=== PATIENT | male | born 1950 | race Caucasian/White ===

== ENCOUNTER 2024-04-19 09:18 | Outpatient (AMB) | payer OTHER, SELFPAY ==
[2024-04-19 09:17] VITALS: BP 129/80; PULSE 70; RESP 18; TEMP 36.4; O2SAT 95; BMI 39.4
--- NOTE | 2024-04-19 09:17 | PD.ORTHCLVIS ---
Vital signs 04/19/24 09:17 Height 1.78 m Height Method Stated Weight 124.738 kg Weight Measurement Method Estimated by Patient BMI 39.4 BP 129/80 Blood Pressure Source Automatic Cuff Blood Pressure Location Right Upper Arm Position Sitting Respiration 18 Pulse 70 Pulse Source Monitor Temp 97.6 F Temp Source Temporal Artery Scan Pulse Oximetry (%) 95 Oxygen Delivery Method Room Air Med/Allergies Allergies & Medications Allergies bee venom protein (honey bee) Allergy (Unknown, Verified 04/19/24 09:24) Medication Reconciliation metoprolol succinate 100 mg tablet,extended release 24 hr (Toprol XL) 100 mg PO DAILY 09/04/17 [History Confirmed 04/19/24] simvastatin 80 mg tablet 80 mg PO HS 09/04/17 [History Confirmed 04/19/24] losartan 100 mg-hydrochlorothiazide 12.5 mg tablet 1 tab PO QDAY 05/26/23 [History Confirmed 04/19/24] aspirin 81 mg tablet,delayed release 81 mg PO BID #60 tabs 05/27/23 [Rx Confirmed 04/19/24] doxycycline hyclate 100 mg tablet 100 mg PO BID #14 tabs 05/27/23 [Rx Confirmed 04/19/24] oxycodone 5 mg tablet 5 mg PO Q6H PRN pain #28 tabs 05/27/23 [Rx Confirmed 04/19/24] sennosides 8.6 mg-docusate sodium 50 mg tablet (Senna-S) 1 tab-cap PO QDAY #30 tabs 05/27/23 [Rx Confirmed 04/19/24] gabapentin 300 mg capsule 300 mg PO .qhs #30 caps 06/30/23 [Rx Confirmed 04/19/24] cyclobenzaprine 5 mg tablet 5 mg PO QHS PRN muscle spasm #30 tabs 08/13/23 [Rx Confirmed 04/19/24] cyclobenzaprine 7.5 mg tablet 7.5 mg PO QHS PRN muscle spasm #45 tabs 09/01/23 [Rx Confirmed 04/19/24] cyclobenzaprine 7.5 mg tablet 7.5 mg PO QHS PRN muscle spasm #60 tabs 09/04/23 [Rx Confirmed 04/19/24] Subjective Visit Visit for: follow up visit and knee Immunization / Flu Flu Vaccine in the Last 12 Months: No Flu Vaccine Exclusion Criteria: No Exclusion Criteria Pain Pain level (0-10): 3 Pain location: inside (medial) Pain quality: aching Associated signs & symptoms: none Ambulatory data Ambulatory device: cane Treatments Improvement with previous injections: No Improvement with PT: No Improvement with NSAIDS: no Review of Systems Review of Systems: All systems negative unless otherwise noted in HPI. Assessment and Plan Advanced Care Planning Discussion Advance care planning discussed with:: patient Office Procedures GNS Level of Care Nursing/Assessment Patient Status: Established Patient Nursing Assessment/Reassesment: Medication Reconciliation, Update PMH in EMR and Vital Signs Coordination of Care: Complex Care and Chronic Disease 1-5, Education Complex Pt/Fam, Consent,records obtained, informed consent, 1 Ins Authorization, Lab and Imaging orders, Results/Orders obtained and Staff clarify orders Established Patient Charge Established Patient Point Assignment: 125 Established Patient Point Charge: EP Level 4 (120-155) Past Medical History Past Medical History Have you ever been diagnosed with any of the following: Neurological Problems Cerebrovascular Accident (CVA): Yes Seizures: No Cardiology Problems Hypercholesterolemia: Yes Congestive Heart Failure: No Hypertension: Yes Respiratory Problems Chronic Obstructive Pulmonary Disease (COPD): No Smoking: No Smoking Exposure: No Stomache/Intestinal Problems Obesity: Yes Genital/Urinary Problems Renal Disease: No Kidney Stones: Yes Musculoskeletal Problems Arthritis: Yes Fractures: Yes (left ankle) Endocrine Problems Diabetes Mellitus Type 1: No Diabetes Mellitus Type 2: No Other Problems Hospitalization: Yes (Back surgery) Shingles: No Blood Transfusions: No Blood Transfusion Reaction: No Anesthesia Reactions: No Chicken Pox: Yes Measles: Yes Mumps: Yes Cancer: Yes
--- NOTE | 2024-05-25 15:11 | ORTHONT_ITS ---
Vital signs 04/19/24 09:17 05/25/24 15:12 Height 1.78 m Height Method Stated Weight 124.738 kg Weight Measurement Method Estimated by Patient BMI 39.4 BP 129/80 129/80 Blood Pressure Source Automatic Cuff Blood Pressure Location Right Upper Arm Position Sitting Respiration 18 18 Pulse 70 70 Pulse Source Monitor Temp 97.6 F 97.6 F Temp Source Temporal Artery Scan Pulse Oximetry (%) 95 95 Oxygen Delivery Method Room Air Med/Allergies Allergies & Medications Allergies bee venom protein (honey bee) Allergy (Unknown, Verified 04/19/24 09:24) Medication Reconciliation metoprolol succinate 100 mg tablet,extended release 24 hr (Toprol XL) 100 mg PO DAILY 09/04/17 [History Confirmed 04/19/24] simvastatin 80 mg tablet 80 mg PO HS 09/04/17 [History Confirmed 04/19/24] losartan 100 mg-hydrochlorothiazide 12.5 mg tablet 1 tab PO QDAY 05/26/23 [History Confirmed 04/19/24] aspirin 81 mg tablet,delayed release 81 mg PO BID #60 tabs 05/27/23 [Rx Confirmed 04/19/24] doxycycline hyclate 100 mg tablet 100 mg PO BID #14 tabs 05/27/23 [Rx Confirmed 04/19/24] oxycodone 5 mg tablet 5 mg PO Q6H PRN pain #28 tabs 05/27/23 [Rx Confirmed 04/19/24] sennosides 8.6 mg-docusate sodium 50 mg tablet (Senna-S) 1 tab-cap PO QDAY #30 tabs 05/27/23 [Rx Confirmed 04/19/24] gabapentin 300 mg capsule 300 mg PO .qhs #30 caps 06/30/23 [Rx Confirmed 04/19/24] cyclobenzaprine 5 mg tablet 5 mg PO QHS PRN muscle spasm #30 tabs 08/13/23 [Rx Confirmed 04/19/24] cyclobenzaprine 7.5 mg tablet 7.5 mg PO QHS PRN muscle spasm #45 tabs 09/01/23 [Rx Confirmed 04/19/24] cyclobenzaprine 7.5 mg tablet 7.5 mg PO QHS PRN muscle spasm #60 tabs 09/04/23 [Rx Confirmed 04/19/24] Subjective Visit Visit for: follow up visit and knee Immunization / Flu Flu Vaccine in the Last 12 Months: Yes Flu Vaccine Exclusion Criteria: Already Received History of Present Illness Chief complaint: FOLLOW UP KNEE Patient is a pleasant 73-year-old male status post right knee spacer placement and functional spacer. He is doing well. His wound is healed. He is working with outpatient therapy and is progressing well. He still uses a cane. He is happy with his progress. He reports that his knee feels like it is unstable. He has tried some braces Personal History Red flag PMH: other (specify) and none (NON SMOKER) Pain Pain level (0-10): 2 Pain location: outside (lateral) Pain quality: sharp Pain timing: increases with activity and stairs Associated signs & symptoms: numbness (FOOT) Ambulatory data Ambulatory device: cane Treatments Improvement with previous injections: Yes Improvement with PT: Yes Improvement with NSAIDS: yes Review of Systems Review of Systems: All systems negative unless otherwise noted in HPI. Exam Exam Patient is in no acute distress and is cooperative with the examination today. Patient has a normal mood and affect. Breathing is nonlabored. In no respiratory distress. Bilateral extremities were evaluated and demonstrates sensation intact to light touch. Palpable pedal pulses are present. No significant edema is present. Right knee incision is clean dry and intact. Range of motion is 0 to 105 degrees knee feels stable varus valgus stress. There is 8mm of transalation in AP X-rays were reviewed from [facility] imaging. This is dated 08/11/2023. This demonstrates a all poly tibia with a longstem Steinmann pin. 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 He is doing well postoperatively. We have no intention of removing the dynamic spacer as he is doing well. I offered reimplantation and currently he does not want this and is happy with how it is. We will get him in a brace (2) Status post total right knee replacement: Status: Acute Advanced Care Planning Discussion Advance care planning discussed with:: patient Office Procedures GNS Level of Care Nursing/Assessment Patient Status: Established Patient Nursing Assessment/Reassesment: Medication Reconciliation, Update PMH in EMR and Vital Signs Coordination of Care: Complex Care and Chronic Disease 1-5, Education Complex Pt/Fam, Consent,records obtained, informed consent, 1 Ins Authorization, Lab and Imaging orders, Results/Orders obtained and Staff clarify orders Established Patient Charge Established Patient Point Assignment: 125 Established Patient Point Charge: Level 4 (120-155) Past Medical History Past Medical History Have you ever been diagnosed with any of the following: Neurological Problems Cerebrovascular Accident (CVA): Yes Seizures: No Cardiology Problems Hypercholesterolemia: Yes Congestive Heart Failure: No Hypertension: Yes Respiratory Problems Chronic Obstructive Pulmonary Disease (COPD): No Smoking: No Smoking Exposure: No Stomache/Intestinal Problems Obesity: Yes Genital/Urinary Problems Renal Disease: No Kidney Stones: Yes Musculoskeletal Problems Arthritis: Yes Fractures: Yes (left ankle) Endocrine Problems Diabetes Mellitus Type 1: No Diabetes Mellitus Type 2: No Other Problems Hospitalization: Yes (Back surgery) Shingles: No Blood Transfusions: No Blood Transfusion Reaction: No Anesthesia Reactions: No Chicken Pox: Yes Measles: Yes Mumps: Yes Cancer: Yes
[2024-05-25 15:12] VITALS: BP 129/80; PULSE 70; RESP 18; TEMP 36.4; O2SAT 95
== END 2024-04-19 09:23 | disposition home or self-care (01) ==
LOC: HODSRG 09:18
PROVIDERS: PCP Internal Medicine; Referring Provider Internal Medicine; Supervising Provider Orthopaedic Surgery Adult Reconstructive Orthopaedic Surgery; Visit Provider Orthopaedic Surgery Adult Reconstructive Orthopaedic Surgery
DX: Z96.651 Presence of right artificial knee joint (principal); I10 Essential (primary) hypertension; E78.00 Pure hypercholesterolemia, unspecified
CPT/HCPCS: 99214; G0463

== ENCOUNTER 2024-07-01 08:23 | Outpatient (AMB) | payer OTHER, SELFPAY ==
--- NOTE | 2024-07-01 08:37 | ORTHONT_ITS ---
Vital signs 07/01/24 08:38 Height 1.78 m Height Method Stated Weight 136.985 kg Weight Measurement Method Standing Scale BMI 43.2 BP 152/73 H Blood Pressure Source Automatic Cuff Blood Pressure Location Left Upper Arm Position Sitting Respiration 18 Pulse 73 Pulse Source Monitor Temp 97.3 F Temp Source Temporal Artery Scan Pulse Oximetry (%) 90 L Oxygen Delivery Method Room Air Med/Allergies Allergies & Medications Allergies bee venom protein (honey bee) Allergy (Unknown, Verified 07/01/24 08:38) Medication Reconciliation metoprolol succinate 100 mg tablet,extended release 24 hr (Toprol XL) 100 mg PO DAILY 09/04/17 [History Confirmed 07/01/24] simvastatin 80 mg tablet 80 mg PO HS 09/04/17 [History Confirmed 07/01/24] losartan 100 mg-hydrochlorothiazide 12.5 mg tablet 1 tab PO QDAY 05/26/23 [History Confirmed 07/01/24] aspirin 81 mg tablet,delayed release 81 mg PO BID #60 tabs 05/27/23 [Rx Confirmed 07/01/24] doxycycline hyclate 100 mg tablet 100 mg PO BID #14 tabs 05/27/23 [Rx Confirmed 07/01/24] oxycodone 5 mg tablet 5 mg PO Q6H PRN pain #28 tabs 05/27/23 [Rx Confirmed 07/01/24] sennosides 8.6 mg-docusate sodium 50 mg tablet (Senna-S) 1 tab-cap PO QDAY #30 tabs 05/27/23 [Rx Confirmed 07/01/24] gabapentin 300 mg capsule 300 mg PO .qhs #30 caps 06/30/23 [Rx Confirmed 07/01/24] cyclobenzaprine 5 mg tablet 5 mg PO QHS PRN muscle spasm #30 tabs 08/13/23 [Rx Confirmed 07/01/24] cyclobenzaprine 7.5 mg tablet 7.5 mg PO QHS PRN muscle spasm #45 tabs 09/01/23 [Rx Confirmed 07/01/24] cyclobenzaprine 7.5 mg tablet 7.5 mg PO QHS PRN muscle spasm #60 tabs 09/04/23 [Rx Confirmed 07/01/24] Exam Exam Patient is in no acute distress and is cooperative with the examination today. Breathing is nonlabored. Patient has a normal mood and affect. The patient has a gait that is nonantalgic Bilateral extremities were evaluated and demonstrates sensation intact to light touch. Palpable pedal pulses are present. No significant edema is present. Bilateral hips were examined. The patient has no pain with log roll of the hips. Internal rotation to 30 degrees and external rotation to 30 degrees is painless. Negative FADIR. Left knee was examined today. The left knee is in reasonable alignment. Range of motion from 0-120 degrees. Knee is stable to varus and valgus as well as AP translation with <5mm. Patient has a negative McMurrays. There is no pain with patellofemoral compression and no crepitus noted. The knee is nontender to palpation. The right knee was also examined. The right knee is in neutral alignment. Range of motion from 0-120 degrees. Knee is stable to varus and valgus as well as AP translation with >5mm . Patient has a negative McMurrays. There is no pain with patellofemoral compression and no crepitus noted. The knee is nontender to palpation diffusely. 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 He is doing well postoperatively. He is unhappy because he cannot get back to bowling yet. He has no pain at all. I discussed with him that a revision knee replacement is a big procedure but may be one of the only things we can do to get him back to bowling. I discussed with him that there is a high risk of infection as well as certain complication such as loosening given the fact that there is a lot of bone loss and that this is a revision surgery. She would like to consider getting this revised. We will obtain a repeat ESR and CRP as well as a repeat aspiration. (2) Status post total right knee replacement: Status: Acute Advanced Care Planning Discussion Advance care planning discussed with:: patient Office Procedures GNS Level of Care Nursing/Assessment Patient Status: Established Patient Nursing Assessment/Reassesment: Medication Reconciliation, Update PMH in EMR and Vital Signs Coordination of Care: Complex Care and Chronic Disease 1-5, Education Complex Pt/Fam, Consent,records obtained, informed consent, 1 Ins Authorization, Results/Orders obtained and Staff clarify orders Established Patient Charge Established Patient Point Assignment: 110 Established Patient Point Charge: EP Level 3 (80-115) MA Intake Visit Data Collection New Patient or Established: Established Patient (seen at [facility] within 3 years) Reason for Visit:: REQ RIGHT KNEE SX/HAVING DISCOMFORT Seen by Clinical Staff ONLY (RN/MA): No Environmental Compliance Manager Required: No PCP or OBGYN visit in last 3 months: Yes Hx Now: No Do You Feel Safe at Home: Yes Authorities Contacted: N/A Questionairres Past Medical History Past Medical History Have you ever been diagnosed with any of the following: Neurological Problems Cerebrovascular Accident (CVA): Yes Seizures: No Cardiology Problems Hypercholesterolemia: Yes Congestive Heart Failure: No Hypertension: Yes Respiratory Problems Chronic Obstructive Pulmonary Disease (COPD): No Smoking: No Smoking Exposure: No Stomache/Intestinal Problems Obesity: Yes Genital/Urinary Problems Renal Disease: No Kidney Stones: Yes Musculoskeletal Problems Arthritis: Yes Fractures: Yes (left ankle) Endocrine Problems Diabetes Mellitus Type 1: No Diabetes Mellitus Type 2: No Other Problems Hospitalization: Yes (Back surgery) Shingles: No Blood Transfusions: No Blood Transfusion Reaction: No Anesthesia Reactions: No Chicken Pox: Yes Measles: Yes Mumps: Yes Cancer: Yes Subjective Visit Visit for: follow up visit and knee Immunization / Flu Flu Vaccine in the Last 12 Months: No Flu Vaccine Exclusion Criteria: No Exclusion Criteria History of Present Illness Chief complaint: Right knee instability Evan is a pleasant 73-year-old male with a right total knee replacement is complicated by PJI. He had a one half staged exchange with an antibiotic spacer placed. He does not like the fact that he cannot go back to bowling. He has no pain but has difficulty bowling due to some instability. We thus discussed revision knee replacement today Pain Pain level (0-10): 0 Pain location: inside (medial) Pain quality: other (specify) (POPPING) Associated signs & symptoms: none Ambulatory data Ambulatory device: cane Treatments Improvement with previous injections: No Improvement with PT: No Improvement with NSAIDS: no Review of Systems Review of Systems: All systems negative unless otherwise noted in HPI.
[2024-07-01 08:38] VITALS: BP 152/73; PULSE 73; RESP 18; TEMP 36.3; O2SAT 90; BMI 43.2
== END 2024-07-01 08:58 | disposition home or self-care (01) ==
LOC: HODSRG 08:23
PROVIDERS: PCP Internal Medicine; Referring Provider Internal Medicine; Supervising Provider Orthopaedic Surgery Adult Reconstructive Orthopaedic Surgery; Visit Provider Orthopaedic Surgery Adult Reconstructive Orthopaedic Surgery
DX: Z96.651 Presence of right artificial knee joint (principal); I10 Essential (primary) hypertension; E78.00 Pure hypercholesterolemia, unspecified; Z86.73 Personal history of transient ischemic attack (TIA), and cerebral infarction without residual deficits
CPT/HCPCS: 99213; G0463

== ENCOUNTER → 2024-07-27 | Outpatient (CLI) | payer OTHER, SELFPAY ==
[2024-07-27 09:41] LABS: C-Reactive Protein 1.3 mg/dL (0.0-0.9)
[2024-07-27 10:15] LABS: Sed Rate (ESR) 16 mm/hr (0-20)
== END | disposition home or self-care (01) ==
PROVIDERS: PCP Internal Medicine; Referring Provider Orthopaedic Surgery Adult Reconstructive Orthopaedic Surgery; Visit Provider Internal Medicine
DX: M00.9 Pyogenic arthritis, unspecified (principal); T81.30XA Disruption of wound, unspecified, initial encounter
CPT/HCPCS: 36415; 85652; 86140

== ENCOUNTER → 2024-07-28 | Outpatient (CLI) | payer OTHER, SELFPAY ==
--- NOTE | 2024-07-28 08:30 | XR_ITS ---
Examination: IR fluoroscopically guided right knee joint aspiration Fluoroscopy AP right knee single view. Exam date and time: July 28, 2024 0742 hours INDICATIONS: History knee arthroplasty, knee swelling and pain months Informed consent provided. Technique: A timeout was completed verifying correct patient, procedure, site, positioning. The patient was placed in supine position appropriate for the steroid injection The patient's site was prepped and draped in sterile fashion 5 cc 1% lidocaine administered locally for anesthesia. Sterile drape applied, maximum barrier sterile technique. Utilizing fluoroscopic guidance, 22-gauge Chiba needle placed in the joint space 7 cc turbid yellow fluid withdrawn for analysis The patient was in satisfactory and stable condition on completion of the procedure Attending radiologist was present for the entire procedure Estimated blood loss 0 cc. Impression: Successful IR fluoroscopically guided right knee joint aspiration Fluoroscopy 0.1 minute radiation dose 0.72 milligray 1 spot fluoroscopic AP knee films.
== END | disposition home or self-care (01) ==
LOC: SIRX 07:32
PROVIDERS: PCP Internal Medicine; Referring Provider Orthopaedic Surgery Adult Reconstructive Orthopaedic Surgery; Visit Provider Internal Medicine
DX: T84.51XA Infection and inflammatory reaction due to internal right hip prosthesis, initial encounter (principal); M00.9 Pyogenic arthritis, unspecified
CPT/HCPCS: 20610; 77002

== ENCOUNTER 2024-08-02 08:40 | Outpatient (AMB) | payer OTHER, SELFPAY ==
--- NOTE | 2024-07-18 13:05 | PD.ORTHCLVIS ---
Vital signs 08/02/24 09:08 Height 1.78 m Height Method Stated Weight 137.013 kg Weight Measurement Method Standing Scale BMI 43.2 BP 127/81 Blood Pressure Source Automatic Cuff Blood Pressure Location Right Upper Arm Position Sitting Respiration 18 Pulse 69 Pulse Source Monitor Temp 97.6 F Temp Source Temporal Artery Scan Pulse Oximetry (%) 94 L Oxygen Delivery Method Room Air Med/Allergies Allergies & Medications Allergies bee venom protein (honey bee) Allergy (Unknown, Verified 08/02/24 09:09) Medication Reconciliation metoprolol succinate 100 mg tablet,extended release 24 hr (Toprol XL) 100 mg PO DAILY 09/04/17 [History Confirmed 07/01/24] simvastatin 80 mg tablet 80 mg PO HS 09/04/17 [History Confirmed 07/01/24] losartan 100 mg-hydrochlorothiazide 12.5 mg tablet 1 tab PO QDAY 05/26/23 [History Confirmed 07/01/24] aspirin 81 mg tablet,delayed release 81 mg PO BID #60 tabs 05/27/23 [Rx Confirmed 07/01/24] doxycycline hyclate 100 mg tablet 100 mg PO BID #14 tabs 05/27/23 [Rx Confirmed 07/01/24] oxycodone 5 mg tablet 5 mg PO Q6H PRN pain #28 tabs 05/27/23 [Rx Confirmed 07/01/24] sennosides 8.6 mg-docusate sodium 50 mg tablet (Senna-S) 1 tab-cap PO QDAY #30 tabs 05/27/23 [Rx Confirmed 07/01/24] gabapentin 300 mg capsule 300 mg PO .qhs #30 caps 06/30/23 [Rx Confirmed 07/01/24] cyclobenzaprine 5 mg tablet 5 mg PO QHS PRN muscle spasm #30 tabs 08/13/23 [Rx Confirmed 07/01/24] cyclobenzaprine 7.5 mg tablet 7.5 mg PO QHS PRN muscle spasm #45 tabs 09/01/23 [Rx Confirmed 07/01/24] cyclobenzaprine 7.5 mg tablet 7.5 mg PO QHS PRN muscle spasm #60 tabs 09/04/23 [Rx Confirmed 07/01/24] B-complex with vitamin C 1 tab PO QDAY 07/18/24 [History Confirmed 07/18/24] aspirin 81 mg tablet,delayed release 81 mg PO QDAY 07/18/24 [History Confirmed 07/18/24] atorvastatin 40 mg tablet 40 mg PO QDAY 07/18/24 [History Confirmed 07/18/24] cetirizine 10 mg capsule (Allergy Relief (cetirizine)) 10 mg PO QDAY PRN 07/18/24 [History Confirmed 07/18/24] losartan 100 mg-hydrochlorothiazide 12.5 mg tablet 1 tab PO QDAY 07/18/24 [History Confirmed 07/18/24] metoprolol succinate 100 mg tablet,extended release 24 hr 100 mg PO QDAY 07/18/24 [History Confirmed 07/18/24] pantoprazole 40 mg tablet,delayed release 40 mg PO QDAY 07/18/24 [History Confirmed 07/18/24] potassium citrate 99 mg capsule mg PO 07/18/24 [History Confirmed 07/18/24] Exam Exam Patient is in no acute distress and is cooperative with the examination today. Breathing is nonlabored. Patient has a normal mood and affect. The patient has a gait that is nonantalgic Bilateral extremities were evaluated and demonstrates sensation intact to light touch. Palpable pedal pulses are present. No significant edema is present. Bilateral hips were examined. The patient has no pain with log roll of the hips. Internal rotation to 30 degrees and external rotation to 30 degrees is painless. Negative FADIR. Left knee was examined today. The left knee is in reasonable alignment. Range of motion from 0-120 degrees. Knee is stable to varus and valgus as well as AP translation with <5mm. Patient has a negative McMurrays. There is no pain with patellofemoral compression and no crepitus noted. The knee is nontender to palpation. The right knee was also examined. The right knee is in neutral alignment. Range of motion from 0-120 degrees. Knee is stable to varus and valgus as well as AP translation with >5mm . Patient has a negative McMurrays. There is no pain with patellofemoral compression and no crepitus noted. The knee is nontender to palpation diffusely. 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 He is doing well postoperatively. He is unhappy because he cannot get back to bowling yet. He has no pain at all. I discussed with him that a revision knee replacement is a big procedure but may be one of the only things we can do to get him back to bowling. I discussed with him that there is a high risk of infection as well as certain complication such as loosening given the fact that there is a lot of bone loss and that this is a revision surgery. His aspiration was unremarkable We discussed the revision knee replacement in great detail. We discussed risk of surgery include persistent ongoing recurrent infection, mechanical issues, recurrent instability, numbness. The patient understands the risks and elects to proceed with surgery (2) Status post total right knee replacement: Status: Acute Advanced Care Planning Discussion Advance care planning discussed with:: patient Office Procedures GNS Level of Care Nursing/Assessment Patient Status: Established Patient Nursing Assessment/Reassesment: Medication Reconciliation, Update PMH in EMR and Vital Signs Coordination of Care: Complex Care and Chronic Disease 1-5, Education Complex Pt/Fam, Consent,records obtained, informed consent, 2-3 Insurance Autorizations needed, Results/Orders obtained and Staff clarify orders Established Patient Charge Established Patient Point Assignment: 115 Established Patient Point Charge: EP Level 3 (80-115) MA Intake Visit Data Collection New Patient or Established: Established Patient (seen at [facility] within 3 years) Reason for Visit:: PRE-OP/ KNEE FOLLOW UP Seen by Clinical Staff ONLY (RN/MA): No Verbal consent obtained for Telemed visit?: No Research Animal Attendant Required: No PCP or OBGYN visit in last 3 months: Yes Hx Now: No Do You Feel Safe at Home: Yes Authorities Contacted: N/A Questionairres Past Medical History Past Medical History Have you ever been diagnosed with any of the following: Neurological Problems Cerebrovascular Accident (CVA): Yes Seizures: No Cardiology Problems Hypercholesterolemia: Yes Congestive Heart Failure: No Hypertension: Yes Respiratory Problems Chronic Obstructive Pulmonary Disease (COPD): No Smoking: No Smoking Exposure: No Stomache/Intestinal Problems Obesity: Yes Genital/Urinary Problems Renal Disease: No Kidney Stones: Yes Musculoskeletal Problems Arthritis: Yes Fractures: Yes (left ankle) Endocrine Problems Diabetes Mellitus Type 1: No Diabetes Mellitus Type 2: No Other Problems Hospitalization: Yes (Back surgery) Shingles: No Blood Transfusions: No Blood Transfusion Reaction: No Anesthesia Reactions: No Chicken Pox: Yes Measles: Yes Mumps: Yes Cancer: Yes Subjective Visit Visit for: follow up visit and knee Immunization / Flu Flu Vaccine in the Last 12 Months: No Flu Vaccine Exclusion Criteria: No Exclusion Criteria History of Present Illness Chief complaint: KNEE FOLLOW UP & PRE-OP Evan is a pleasant 73-year-old male with a right total knee replacement is complicated by PJI. He had a one half staged exchange with an antibiotic spacer placed. He does not like the fact that he cannot go back to bowling. He has no pain but has difficulty bowling due to some instability. We thus discussed revision knee replacement today In great detail. He had an aspiration but we are still pending results Personal History Occupation: DIS[employer] Red flag PMH: BMI BMI Counceling provided: Yes Pain Pain level (0-10): 5 Pain duration: ALL DAY Pain location: inside (medial), outside (lateral), anterior and posterior Pain quality: dull and aching Associated signs & symptoms: weakness Ambulatory data Ambulatory device: cane Treatments Improvement with previous injections: No Improvement with PT: No Improvement with NSAIDS: no Review of Systems Review of Systems: All systems negative unless otherwise noted in HPI.
[2024-08-02 09:08] VITALS: BP 127/81; PULSE 69; RESP 18; TEMP 36.4; O2SAT 94; BMI 43.2
== END 2024-08-02 09:47 | disposition home or self-care (01) ==
LOC: HODSRG 08:40
PROVIDERS: PCP Internal Medicine; Referring Provider Internal Medicine; Supervising Provider Orthopaedic Surgery Adult Reconstructive Orthopaedic Surgery; Visit Provider Orthopaedic Surgery Adult Reconstructive Orthopaedic Surgery
DX: Z47.1 Aftercare following joint replacement surgery (principal); Z96.651 Presence of right artificial knee joint; I10 Essential (primary) hypertension; E78.00 Pure hypercholesterolemia, unspecified; Z86.73 Personal history of transient ischemic attack (TIA), and cerebral infarction without residual deficits
CPT/HCPCS: 99213; G0463

== ENCOUNTER → 2024-08-10 | Outpatient (CLI) | payer OTHER, SELFPAY ==
[2024-08-10 09:37] LABS: Basophils # (Auto) 0.1 Thou/mm3 (0.0-0.2); Basophils % (Auto) 0 % (0-2.5); Eosinophils # (Auto) 0.3 Thou/mm3 (0.0-0.5); Eosinophils % (Auto) 3 % (0-10); Hematocrit 42.8 % (41.0-53.0); Hemoglobin 13.9 g/dL (13.5-16.0); Immature Granulocytes % (Auto) 1 % (0-0); Immature Granulocytes Auto 0.07 Thou/mm3 (0.00-0.00); Lymphocytes % (Auto) 17 % (10-50); Mean Corpuscular HGB Conc 32.5 g/dl (31.0-37.0); Mean Corpuscular Hemoglobin 30.2 pg (25.0-35.0); Mean Corpuscular Volume 93 fL (80-100); Monocytes # (Auto) 0.9 Thou/mm3 (0.0-0.8); Monocytes % (Auto) 7 % (0-12); Neutrophils % (Auto) 73 % (37-80); Nucleated Red Blood Cell % 0 /100 WBC (0); Platelet Count 284 Thou/mm3 (140-440); RDW Standard Deviation 50.4 fL (35.1-43.9); Red Blood Count 4.61 Miln/mm3 (4.50-5.90); White Blood Count 12.3 Thou/mm3 (3.8-10.6)
[2024-08-10 09:43] LABS: Glucose Estimated Average 120 mg/dL (80-131); Hemoglobin A1C 5.8 % Hgb (4.8-6.0)
[2024-08-10 09:44] LABS: Prostate Specific Antigen 0.78 ng/mL (0-4.00)
[2024-08-10 09:47] LABS: Vitamin D 25 Hydroxy Total 48.3 ng/mL (7.3-40.2)
[2024-08-10 09:50] LABS: Alanine Aminotransferase 21 U/L (10-49); Albumin, Serum 4.4 gm/dL (3.4-4.8); Albumin/Globulin Ratio 1.7 (1.2-2.2); Alkaline Phosphatase 72 U/L (46-116); Anion Gap 8 (7-16); Aspartate Amino Transferase 24 U/L (0-34); BUN/Creatinine Ratio 17 Ratio (12-20); Bilirubin,Total 0.5 mg/dL (0.3-1.2); Blood Urea Nitrogen 20 mg/dL (9-23); Calcium 9.5 mg/dL (8.3-10.6); Calcium (Corrected) 9.5 mg/dL (8.5-10.1); Carbon Dioxide 31.5 mMol/L (20.0-31.0); Cardiac Risk Estimate 2.9 RATIO (4.0-6.7); Chloride 104 mMol/L (98-107); Cholesterol 141 mg/dL (132-200); Creatinine (Component) 1.2 mg/dL (0.6-1.3); Free T4 (Free Thyroxine) 1.04 ng/dL (0.89-1.76); Globulin 2.6 gm/dL (2.3-3.5); Glucose 100 mg/dL (74-106); HDL Cholesterol 48 mg/dL (40-60); LDL Cholesterol,Calculated 81 mg/dL (0-130); Osmolality,Calculated 287 (275-295); Potassium 4.6 mMol/L (3.4-5.1); Sodium 143 mMol/L (136-145); Thyroid Stimulating Hormone 1.41 uIU/mL (0.55-4.78); Triglycerides 59 mg/dL (30-150); eGFR > 60 See Note
== END | disposition home or self-care (01) ==
PROVIDERS: PCP Internal Medicine; Referring Provider Internal Medicine; Visit Provider Internal Medicine
DX: I11.0 Hypertensive heart disease with heart failure (principal); E11.9 Type 2 diabetes mellitus without complications; N40.1 Benign prostatic hyperplasia with lower urinary tract symptoms; E55.9 Vitamin D deficiency, unspecified; E78.2 Mixed hyperlipidemia; E03.9 Hypothyroidism, unspecified
CPT/HCPCS: 36415; 80053; 80061; 82306; 83036; 84153; 84439; 84443; 85025

== ENCOUNTER 2024-08-24 15:31 | Inpatient (IN) | payer OTHER, SELFPAY ==
--- NOTE | 2024-08-23 07:00 | EKG_ITS ---
[facility] Test Date: 2024-08-23 Pat Name: RAY MARTINEZ Department: Room: - Gender: Male Bilingual Secretary: RTSJC : 1950 Requested By: Jc Olivarez Order Number: [id number] Reading MD: Jc Olivarez Measurements Intervals [place] Rate: 63 P: 77 AL: 155 QRS: 16 QRSD: 104 T: 5 QT: 390 QTc: 399 Interpretive Statements SINUS RHYTHM Compared to ECG 05/26/2023 15:35:59 No significant changes /store/S0/[id number]
[2024-08-23 07:35] VITALS: BMI 43.5
[2024-08-23 08:17] LABS: Basophils # (Auto) 0.1 Thou/mm3 (0.0-0.2); Basophils % (Auto) 0 % (0-2.5); Eosinophils # (Auto) 0.4 Thou/mm3 (0.0-0.5); Eosinophils % (Auto) 3 % (0-10); Hematocrit 42.8 % (41.0-53.0); Hemoglobin 14.2 g/dL (13.5-16.0); Immature Granulocytes % (Auto) 1 % (0-0); Immature Granulocytes Auto 0.06 Thou/mm3 (0.00-0.00); Lymphocytes % (Auto) 16 % (10-50); Mean Corpuscular HGB Conc 33.2 g/dl (31.0-37.0); Mean Corpuscular Hemoglobin 30.5 pg (25.0-35.0); Mean Corpuscular Volume 92 fL (80-100); Monocytes # (Auto) 0.7 Thou/mm3 (0.0-0.8); Monocytes % (Auto) 6 % (0-12); Neutrophils % (Auto) 73 % (37-80); Nucleated Red Blood Cell % 0 /100 WBC (0); Platelet Count 274 Thou/mm3 (140-440); RDW Standard Deviation 48.9 fL (35.1-43.9); Red Blood Count 4.66 Miln/mm3 (4.50-5.90); White Blood Count 12.3 Thou/mm3 (3.8-10.6)
[2024-08-23 08:34] LABS: Alanine Aminotransferase 29 U/L (10-49); Albumin, Serum 4.6 gm/dL (3.4-4.8); Albumin/Globulin Ratio 1.6 (1.2-2.2); Alkaline Phosphatase 74 U/L (46-116); Anion Gap 8 (7-16); Aspartate Amino Transferase 23 U/L (0-34); BUN/Creatinine Ratio 12 Ratio (12-20); Bilirubin,Total 0.5 mg/dL (0.3-1.2); Blood Urea Nitrogen 13 mg/dL (9-23); Calcium 9.4 mg/dL (8.3-10.6); Calcium (Corrected) 9.4 mg/dL (8.5-10.1); Carbon Dioxide 26.4 mMol/L (20.0-31.0); Chloride 109 mMol/L (98-107); Creatinine (Component) 1.1 mg/dL (0.6-1.3); Estimated Creatinine Clearance 82.4 mL/min (>60); Globulin 2.8 gm/dL (2.3-3.5); Glucose 108 mg/dL (74-106); Osmolality,Calculated 286 (275-295); Potassium 4.1 mMol/L (3.4-5.1); Sodium 143 mMol/L (136-145); Total Protein 7.4 gm/dL (5.7-8.2); eGFR > 60 See Note
[2024-08-23 08:35] LABS: INR 0.9 (0.9-1.3); Partial Thromboplastin Time 26.1 Seconds (22.0-36.0); Prothrombin Time 10.3 Seconds (9.0-12.2)
--- NOTE | 2024-08-23 10:34 | SUR.PREOP ---
WBC 12.3, Dr Varner notified and Ok to proceed with Surgery.
[2024-08-24] VITALS (14 sets, daily range): BP systolic 102–176; BP diastolic 61–100; PULSE 65–93; RESP 12–94; TEMP 36.2–37.1; O2SAT 92–98; BMI 43.2
[2024-08-24] MEDS: RINGERS LACTATED 1000 ML 1,000 ML 20 ML IV ×2 (09:40→20:26)
[2024-08-24] MEDS: MELOXICAM 7.5 MG TABLET PO ×2 (09:41→20:42)
[2024-08-24] MEDS: PREGABALIN 75 MG CAPSULE PO (09:41)
[2024-08-24] MEDS: ACETAMINOPHEN 325 MG TABLET 650 MG PO (09:41)
--- NOTE | 2024-08-24 15:27 | PD.SUROPNT ---
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 He had a all poly tibia and a dynamic spacer placed quite a while ago. He was originally okay with leaving the components but reports that he wants to get back to bowling and wanted more stability. He does wanted reimplanted components. We discussed the risk of surgery including recurrent infection, instability, fracture, and medical complications from surgery such as DVT or PE. The patient understands the risks and would like to proceed with surgery. We discussed with him that the biggest risk is wound healing issues given that he had wound healing issues before. Procedure in detail: The patient was prepped and draped in the usual sterile fashion. A surgical timeout was performed to ensure that the correct side was being operated on. The original incision was ellipsed out and an arthrotomy was performed. We removed extensive scar tissue and performed an extensive synovectomy. We then removed all components. We for started on the femur, and used a flexible osteotome as well as a microsagittal saw. After we debonded the implant from the cement, we used a femoral extractor to remove the femur. Minimal bone loss was found. We then subluxed the tibia, and did the same thing. We debonded the implants from the cement and remove the tibia. The Steinmann pin cement was unfortunately still stuck in the canal. Over the 45 minutes was taken to remove all the cement. We then copiously irrigated the wound with extensive saline as well as Irrisept. We cleaned both the femoral and tibial canals in great detail. Attention was then placed at the tibia. Once all cement was removed, we sequentially reamed the tibia. An intramedullary jig was utilized to create a freshen up cut. We then prepped the tibia for a cone and used 5 mm augments as a trial. A size B cone was used. Attention was then placed to the femur. We sequentially reamed the femur and at the distal femur and prepared for 5 mm augments. We used a size 6 femur and found that the rotation was adequate. We then made the final cuts using the jig. There was minimal bone loss on the femur and thus no cone was used. We then trialed all components using a 5 mm medial and lateral distal augments as well as a 5 mm posterior medial and posterior lateral augment. It was found to be significantly stable in both flexion and extension in the medial lateral as well as AP plane. We then cleansed the tibia and femur and cemented it separately. We placed cement restrictor's in the tibia and cemented the tibia with 2 bags of Simplex with Tobra using a gun. We made sure that we had good cement technique and pressurized the canal. Once the cement dried, attention was placed on the femur. We did the same thing by irrigating the canal, placing a cement restrictor, suctioning, and pressurizing the femoral canal and cementing the femoral component. A size 9 TS component was used as the patient wanted more stability. The knee felt very stable and thus the final components were placed with a size 9 poly TS. The patient was closed in the usual fashion. We did use nylon for the skin as well as nicanor. Bank powder was used intraoperatively. A Deepa was placed. He will be in a knee immobilizer given the patient's size. We will follow his cultures. Weightbearing as tolerated with a knee immobilizer Continue antibiotics Follow cultures keely 6 femur, 75mm femoral/tibial stems, size 5 tibia, 9mm poly, augments 5mm tibial medial and lateral, femur 5mm posterior and distal Anesthesia GETA Implants keely 6 femur, 75mm femoral/tibial stems, size 5 tibia, 9mm poly, augmen Pathology / specimen None Pathology comment: none Estimated Blood Loss 300 Disposition floor Surgeon Jose Varner MD Surgical Staff Operation Date: 08/24/24 13:00 Case Staff WASHTUB WORKER HELPER: Tio Arguelles RNvegetable i farmworker: Sandrine Roman
--- NOTE | 2024-08-24 15:31 | XR_ITS ---
Examination: Right knee 2 views Technique one AP lateral right knee 2 views Exam date and time: August 24, 2024 at 1542 hours INDICATIONS: Postop knee replacement FINDINGS: Total right knee arthroplasty. Satisfactory alignment Prominent osteopenia IMPRESSION: Total right knee arthroplasty with satisfactory alignment
--- NOTE | 2024-08-24 15:35 | SUR.PHASEI ---
1535: Pt. arrived with oral airway in place, vitals stable, breathing unlabored, no signs of distress, wound vac in place, report received from Jun KRAUSE and Carlo RN.
--- NOTE | 2024-08-24 16:30 | SUR.PHASEII ---
1630: Pt. aware of name, and is able to make his needs known, however he keeps forgetting where he is and that he had knee surgery, once reoriented, pt. nods his head in remembrence. Wound vac in place to right knee, cap refill to bilateral feet less than 3 seconds, bilateral dorsalis pedis pulses strong and regular, pt. tolerated bites of ice well, gave report to Syd AVALOS prior to transfer to room. Family made aware of transfer to room 356.
--- NOTE | 2024-08-24 16:39 | PC.NURSE ---
PATIENT ARRIVED TO FLOOR AT 1637
[2024-08-24] MEDS: ACETAMINOPHEN 500 MG TABLET 1000 MG PO ×2 (17:10→23:23)
[2024-08-24] MEDS: oxyCODONE HCL 5 MG IR TAB PO (18:42)
[2024-08-24] MEDS: ceFAZolin/D5W 2 GM IV 2 GM/100 ML BAG IV (20:27)
[2024-08-24] MEDS: ASPIRIN EC 81 MG TABEC PO (20:41)
--- NOTE | 2024-08-24 22:06 | PC.NURSE ---
89% O2 sat on room air, pt sleepy- Applied O2 inh on at 2L/min/nc.
[2024-08-25] VITALS: BP 154/82; PULSE 79; RESP 20; TEMP 37.6; O2SAT 94
[2024-08-25] MEDS: MELATONIN 3 MG TABLET PO (00:58)
[2024-08-25 04:00] VITALS: BP 150/72; PULSE 74; RESP 20; TEMP 36.3; O2SAT 95
[2024-08-25] MEDS: oxyCODONE HCL 5 MG IR TAB 10 MG PO ×3 (04:11→22:27)
[2024-08-25 05:30] VITALS: BMI 47.0
[2024-08-25] MEDS: ceFAZolin/D5W 2 GM IV 2 GM/100 ML BAG IV ×3 (05:56→20:56)
[2024-08-25 08:00] VITALS: BP 128/66; PULSE 74; RESP 20; TEMP 36.8; O2SAT 96
[2024-08-25] MEDS: ASPIRIN EC 81 MG TABEC PO ×2 (08:25→20:53)
[2024-08-25] MEDS: PANTOPRAZOLE INJ 40 MG VIAL IV (08:25)
[2024-08-25 10:17] LABS: Basophils # (Auto) 0.1 Thou/mm3 (0.0-0.2); Basophils % (Auto) 0 % (0-2.5); Eosinophils # (Auto) 0.4 Thou/mm3 (0.0-0.5); Eosinophils % (Auto) 4 % (0-10); Hematocrit 33.9 % (41.0-53.0); Hemoglobin 11.2 g/dL (13.5-16.0); Immature Granulocytes % (Auto) 0 % (0-0); Immature Granulocytes Auto 0.04 Thou/mm3 (0.00-0.00); Lymphocytes # (Auto) 1.5 Thou/mm3 (1.0-4.8); Lymphocytes % (Auto) 12 % (10-50); Mean Corpuscular Hemoglobin 30.3 pg (25.0-35.0); Mean Corpuscular Volume 92 fL (80-100); Monocytes % (Auto) 9 % (0-12); Neutrophils # (Auto) 9.2 Thou/mm3 (1.8-7.7); Neutrophils % (Auto) 75 % (37-80); Nucleated Red Blood Cell % 0 /100 WBC (0); Platelet Count 208 Thou/mm3 (140-440); RDW Standard Deviation 50.9 fL (35.1-43.9); White Blood Count 12.3 Thou/mm3 (3.8-10.6)
--- NOTE | 2024-08-25 10:28 | PC.SS ---
Initial assessment: this is 73 year old male. Patient appeared alert/oriented to person, place and situation. Patient reports living at home with spouse, Lydia. Patient confirmed demographic information. Patient assigned his Lydia as his emergency contact. Patient reports requiring minor assistance with ADL's. Patient reports having a walker to assist with ambulation, walker at bed side. Patient denies having home O2. Patient's PCP is Adams De La Garza. Patient would like to return home upon discharge, to provide transportation. No needs identified at this time. D/c plan: home Next of kin: spouse, Lydia [phone]
[2024-08-25 11:53] VITALS: BP 161/66; PULSE 82; RESP 18; TEMP 36.9; O2SAT 94
[2024-08-25] MEDS: ACETAMINOPHEN 500 MG TABLET 1000 MG PO (13:54)
[2024-08-25 13:56] VITALS: BMI 11.0
[2024-08-25 16:00] VITALS: BP 135/88; PULSE 87; RESP 17; TEMP 36.1; O2SAT 93
--- NOTE | 2024-08-25 19:31 | ESPR_ITS ---
Subjective Subjective Brief History: s/p R TKA reimplantation Narrative: Patient is a 73yo male s/p reimplantation after a prior periprosthetic joint infection. Patient is doing well. He would like to go home if possible after talking with his . Exam Vital Signs Temp Pulse Resp BP Pulse Ox O2 Del Method O2 Flow Rate 97.0 F 87 17 135/88 H 93 L Room Air 1 08/25/24 16:00 08/25/24 16:00 08/25/24 16:00 08/25/24 16:00 08/25/24 16:00 08/25/24 16:00 08/25/24 11:53 Additional findings Additional findings: NAD AAOx3 +DP/PT +EHL/FHL/PF/DF Preveva c/d/i Objective - Ortho Labs 08/25/24 09:50 08/23/24 08:06 Labs: Laboratory Results - last 24 hr 08/25/24 09:50 WBC 12.3 H RBC 3.70 L Hgb 11.2 L D Hct 33.9 L MCV 92 MCH 30.3 MCHC 33.0 RDW Std Deviation 50.9 H Plt Count 208 D Neut % (Auto) 75 Lymph % (Auto) 12 [place] % (Auto) 9 Eos % (Auto) 4 Baso % (Auto) 0 Neut # (Auto) 9.2 H Lymph # (Auto) 1.5 [place] # (Auto) 1.0 H Eos # (Auto) 0.4 Baso # (Auto) 0.1 Immature Gran # (Auto) 0.04 H Absolute Nucleated RBC 0.00 Immature Gran % 0 Nucleated RBC % 0 Assessment & Plan Diagnosis (1) Status post revision of total knee: Status: Acute Assessment Additional comments: Patient is a 73yo male s/p R TKA revision and reimplantation. Culture results are pending. - pending PT/OT - pain control - continue abx - plan for discharge home following culture results
[2024-08-25 20:00] VITALS: BP 154/79; PULSE 81; RESP 19; TEMP 36.1; O2SAT 93
[2024-08-25] MEDS: MELOXICAM 7.5 MG TABLET PO (20:54)
[2024-08-26] VITALS (9 sets, daily range): BP systolic 148–176; BP diastolic 72–81; PULSE 76–86; RESP 18–20; TEMP 36.1–37.2; O2SAT 93–95
[2024-08-26] MEDS: oxyCODONE HCL 5 MG IR TAB 10 MG PO (05:59)
[2024-08-26] MEDS: ceFAZolin/D5W 2 GM IV 2 GM/100 ML BAG IV ×3 (06:00→21:29)
[2024-08-26] MEDS: ASPIRIN EC 81 MG TABEC PO ×2 (08:23→20:36)
[2024-08-26] MEDS: PANTOPRAZOLE INJ 40 MG VIAL IV (08:23)
--- NOTE | 2024-08-26 09:08 | PD.ORTHPN ---
Subjective Subjective Brief History: s/p R TKA reimplantation Narrative: Patient is a 73yo male s/p reimplantation after a prior periprosthetic joint infection. Patient is doing well. He would like to go home if possible after talking with his . Exam Vital Signs Temp Pulse Resp BP Pulse Ox O2 Del Method O2 Flow Rate 97.6 F 86 18 148/81 H 93 L Room Air 1 08/26/24 04:00 08/26/24 04:00 08/26/24 04:00 08/26/24 06:00 08/26/24 04:00 08/26/24 04:00 08/25/24 11:53 Additional findings Additional findings: NAD AAOx3 +DP/PT +EHL/FHL/PF/DF Preveva c/d/i Objective - Ortho Labs 08/25/24 09:50 08/23/24 08:06 Labs: Laboratory Results - last 24 hr 08/25/24 09:50 WBC 12.3 H RBC 3.70 L Hgb 11.2 L D Hct 33.9 L MCV 92 MCH 30.3 MCHC 33.0 RDW Std Deviation 50.9 H Plt Count 208 D Neut % (Auto) 75 Lymph % (Auto) 12 [place] % (Auto) 9 Eos % (Auto) 4 Baso % (Auto) 0 Neut # (Auto) 9.2 H Lymph # (Auto) 1.5 [place] # (Auto) 1.0 H Eos # (Auto) 0.4 Baso # (Auto) 0.1 Immature Gran # (Auto) 0.04 H Absolute Nucleated RBC 0.00 Immature Gran % 0 Nucleated RBC % 0 Assessment & Plan Diagnosis (1) Status post revision of total knee: Status: Acute Assessment Additional comments: Patient is a 73yo male s/p R TKA revision and reimplantation. Culture results are pending. - pending PT/OT - pain control - continue abx - culture results have been negative - plan for discharge home following culture results
[2024-08-26] MEDS: ACETAMINOPHEN 500 MG TABLET 1000 MG PO ×2 (12:28→18:00)
[2024-08-26] MEDS: KETOROLAC INJ 30 MG/ML VIAL 15 MG IVP (13:23)
[2024-08-26] MEDS: MELOXICAM 7.5 MG TABLET PO (20:35)
--- NOTE | 2024-08-26 20:45 | PC.NURSE ---
Notify MD Varner of pt's BP 168/77 and HR of 78. MD to start pt's home medications.
[2024-08-26] MEDS: METOPROLOL SUCCINATE XL 25 MG TABCR 100 MG PO (21:28)
[2024-08-26] MEDS: ATORVASTATIN CALCIUM 20 MG TABLET 40 MG PO (21:28)
[2024-08-26] MEDS: LOSARTAN POTASSIUM 25 MG TABLET 100 MG PO (21:29)
[2024-08-27] MEDS: MELATONIN 3 MG TABLET PO (01:48)
[2024-08-27 04:00] VITALS: BP 152/83; PULSE 69; RESP 19; TEMP 36.4; O2SAT 93
[2024-08-27] MEDS: ceFAZolin/D5W 2 GM IV 2 GM/100 ML BAG IV (05:32)
[2024-08-27] MEDS: ACETAMINOPHEN 500 MG TABLET 1000 MG PO (05:32)
[2024-08-27 08:00] VITALS: BP 142/71; PULSE 69; RESP 18; TEMP 36.4; O2SAT 93
[2024-08-27 09:24] VITALS: BP 150/95; PULSE 75
[2024-08-27] MEDS: METOPROLOL SUCCINATE XL 25 MG TABCR 100 MG PO (09:24)
[2024-08-27] MEDS: PANTOPRAZOLE INJ 40 MG VIAL IV (09:24)
--- NOTE | 2024-08-27 09:24 | PD.ORTHPN ---
Subjective Subjective Brief History: s/p R TKA reimplantation Narrative: Patient is a 73yo male s/p reimplantation after a prior periprosthetic joint infection. Patient is doing well. He would like to go home if possible today. His cultures have been negative. Exam Vital Signs Temp Pulse Resp BP Pulse Ox O2 Del Method O2 Flow Rate 97.5 F 69 18 142/71 H 93 L Room Air 1 08/27/24 08:00 08/27/24 08:00 08/27/24 08:00 08/27/24 08:00 08/27/24 08:00 08/27/24 08:00 08/26/24 08:00 Objective - Ortho Labs 08/25/24 09:50 08/23/24 08:06 Assessment & Plan Diagnosis (1) Status post revision of total knee: Status: Acute Assessment Additional comments: Patient is a 73yo male s/p R TKA revision and reimplantation. Culture results are pending. - pending PT/OT - pain control - continue abx - culture results have been negative and he can be discharged on oral antibiotics - plan for discharge home today as cultures have been negative
[2024-08-27 09:29] VITALS: BP 150/95; PULSE 75
[2024-08-27] MEDS: ASPIRIN EC 81 MG TABEC PO (09:29)
[2024-08-27] MEDS: LOSARTAN POTASSIUM 25 MG TABLET 100 MG PO (09:29)
--- NOTE | 2024-08-27 10:15 | PC.NURSE ---
Drop two tablets of Metoprolol when administering morning meds. wasted the two tablets. Called Dr. liu to get one time order for the two tablets metroprolol to replace the two wasted. said no need to reorder. Patient is discharging and can take meds at home.
--- NOTE | 2024-08-30 08:57 | PC.CM ---
I spoke to dr. perez office and they let me know they [facility] They opened patient on 08/[facility].
== END 2024-08-27 11:44 | disposition home health service (06) | DRG 468 ==
LOC: S3NX 16:17 → S3SX 08-25 11:54
PROVIDERS: Anesthesiology; Admitting Provider Orthopaedic Surgery Adult Reconstructive Orthopaedic Surgery; PCP Internal Medicine; Referring Provider Orthopaedic Surgery Adult Reconstructive Orthopaedic Surgery; Visit Provider Orthopaedic Surgery Adult Reconstructive Orthopaedic Surgery
PROC: 0SRC0J9 Replacement of Right Knee Joint with Synthetic Substitute, Cemented, Open Approach (ICD-10-PCS; CPT 27487; principal; 2024-08-24 13:00)
DX: T84.022A Instability of internal right knee prosthesis, initial encounter (principal); Z86.73 Personal history of transient ischemic attack (TIA), and cerebral infarction without residual deficits; Y79.2 Prosthetic and other implants, materials and accessory orthopedic devices associated with adverse incidents; Y83.8 Other surgical procedures as the cause of abnormal reaction of the patient, or of later complication, without mention of misadventure at the time of the procedure
CPT/HCPCS: 36415; 73560; 80053; 85025; 85610; 85730; 87070; 87075; 87081; 87205; 93005; 97162; A4217; A4649; A9272; C1713; C1776; J0689; J0690; J1885; J2250; J2470; J2704; J2795; J3010; J3371; J3490; J7030; J7120; J7999; A4648; A9270; J1596

== ENCOUNTER 2024-09-01 14:55 | Outpatient (AMB) | payer OTHER, SELFPAY ==
--- NOTE | 2024-09-01 15:11 | PD.ORTHCLVIS ---
Med/Allergies Allergies & Medications Allergies bee venom protein (honey bee) Allergy (Unknown, Verified 08/24/24 09:05) Exam Exam Patient is in no acute distress and is cooperative with the examination today. Breathing is nonlabored. Patient has a normal mood and affect. The patient has a gait that is nonantalgic Bilateral extremities were evaluated and demonstrates sensation intact to light touch. Palpable pedal pulses are present. No significant edema is present. Bilateral hips were examined. The patient has no pain with log roll of the hips. Internal rotation to 30 degrees and external rotation to 30 degrees is painless. Negative FADIR. Left knee was examined today. The left knee is in reasonable alignment. Range of motion from 0-120 degrees. Knee is stable to varus and valgus as well as AP translation with <5mm. Patient has a negative McMurrays. There is no pain with patellofemoral compression and no crepitus noted. The knee is nontender to palpation. The right knee was also examined. The right knee is in neutral alignment. Right knee incision is clean dry and intact. 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 He is doing well status post reimplantation. He is on Keflex and we recommended he continue this. He is doing well. Will see him for suture or staple removal in approximately 2 weeks (2) Status post total right knee replacement: Status: Acute Advanced Care Planning Discussion Advance care planning discussed with:: patient Questionairres Past Medical History Past Medical History Have you ever been diagnosed with any of the following: Neurological Problems Cerebrovascular Accident (CVA): Yes (no defficiencies) Seizures: No Cardiology Problems Hypercholesterolemia: Yes Congestive Heart Failure: No Hypertension: Yes Respiratory Problems Chronic Obstructive Pulmonary Disease (COPD): No Smoking: No Smoking Exposure: No Stomache/Intestinal Problems Obesity: Yes Genital/Urinary Problems Renal Disease: No Kidney Stones: Yes Musculoskeletal Problems Arthritis: Yes Fractures: Yes (left ankle) Head,Eye,Nose,Throat Problems Deafness: Yes (bilateral hearing aids) Endocrine Problems Diabetes Mellitus Type 1: No Diabetes Mellitus Type 2: No Other Problems Hospitalization: Yes (Back surgery) Shingles: No Blood Transfusions: No Blood Transfusion Reaction: No Anesthesia Reactions: No Chicken Pox: Yes Measles: Yes Mumps: Yes Cancer: Yes Subjective Immunization / Flu Flu Vaccine in the Last 12 Months: Yes Flu Vaccine Exclusion Criteria: Already Received History of Present Illness Chief complaint: Right knee pain There is doing well status post right revision knee reimplantation. He is here for a wound check. We remove the Prevena plus. There is minimal drainage. We put A dry dressing. Review of Systems Review of Systems: All systems negative unless otherwise noted in HPI.
[2024-09-01 15:14] VITALS: BP 148/78; PULSE 88; RESP 20; TEMP 36.7; O2SAT 94
== END 2024-09-01 15:20 | disposition home or self-care (01) ==
LOC: HODSRG 14:55
PROVIDERS: PCP Internal Medicine; Referring Provider Internal Medicine; Supervising Provider Orthopaedic Surgery Adult Reconstructive Orthopaedic Surgery; Visit Provider Orthopaedic Surgery Adult Reconstructive Orthopaedic Surgery
DX: M00.861 Arthritis due to other bacteria, right knee (principal); I10 Essential (primary) hypertension; Z96.651 Presence of right artificial knee joint; E78.00 Pure hypercholesterolemia, unspecified; Z86.73 Personal history of transient ischemic attack (TIA), and cerebral infarction without residual deficits

== ENCOUNTER 2024-09-13 10:20 | Outpatient (AMB) | payer OTHER, SELFPAY ==
--- NOTE | 2024-09-13 10:32 | ORTHONT_ITS ---
Vital signs 09/13/24 10:33 Height 1.8 m Height Method Stated Weight 132.931 kg Weight Measurement Method Standing Scale BMI 41.0 BP 129/82 Blood Pressure Source Automatic Cuff Blood Pressure Location Left Upper Arm Position Sitting Respiration 18 Pulse 79 Pulse Source Monitor Temp 95.9 F L Temp Source Temporal Artery Scan Pulse Oximetry (%) 90 L Oxygen Delivery Method Room Air Med/Allergies Allergies & Medications Allergies bee venom protein (honey bee) Allergy (Unknown, Verified 09/13/24 10:34) Medication Reconciliation aspirin 81 mg tablet,delayed release 81 mg PO QDAY 07/18/24 [History Confirmed 09/13/24] atorvastatin 40 mg tablet 40 mg PO QDAY 07/18/24 [History Confirmed 09/13/24] cetirizine 10 mg capsule (Allergy Relief (cetirizine)) 10 mg PO QDAY PRN allergy symptoms 07/18/24 [History Confirmed 09/13/24] losartan 100 mg-hydrochlorothiazide 12.5 mg tablet 1 tab PO QDAY 07/18/24 [History Confirmed 09/13/24] metoprolol succinate 100 mg tablet,extended release 24 hr 100 mg PO QDAY 07/18/24 [History Confirmed 09/13/24] pantoprazole 40 mg tablet,delayed release 40 mg PO QDAY 07/18/24 [History Confirmed 09/13/24] potassium citrate 99 mg capsule 99 mg PO DAILY 07/18/24 [History Confirmed 09/13/24] cephalexin 500 mg capsule 500 mg PO Q6H 08/23/24 [History Confirmed 09/13/24] acetaminophen 500 mg tablet (Acetaminophen Extra Strength) 1,000 mg (2 x 500 mg) PO Q6H PRN pain #90 tabs 08/27/24 [Rx Confirmed 09/13/24] aspirin 81 mg tablet,delayed release 81 mg PO BID #60 tabs 08/27/24 [Rx Confirmed 09/13/24] cyclobenzaprine 5 mg tablet 5 mg PO TID PRN muscle spasm #60 tabs 08/27/24 [Rx Confirmed 09/13/24] gabapentin 300 mg capsule 300 mg PO .qhs #30 caps 08/27/24 [Rx Confirmed 09/13/24] oxycodone 5 mg tablet 5 mg PO Q6H PRN pain #28 tabs 03/08/25 [Rx Confirmed 09/13/24] sennosides 8.6 mg-docusate sodium 50 mg tablet (Senna-S) 1 tab-cap PO QDAY #30 tabs 08/27/24 [Rx Confirmed 09/13/24] Exam Exam Patient is in no acute distress and is cooperative with the examination today. Breathing is nonlabored. Patient has a normal mood and affect. The patient has a gait that is nonantalgic Bilateral extremities were evaluated and demonstrates sensation intact to light touch. Palpable pedal pulses are present. No significant edema is present. Bilateral hips were examined. The patient has no pain with log roll of the hips. Internal rotation to 30 degrees and external rotation to 30 degrees is painless. Negative FADIR. Left knee was examined today. The left knee is in reasonable alignment. Range of motion from 0-120 degrees. Knee is stable to varus and valgus as well as AP translation with <5mm. Patient has a negative McMurrays. There is no pain with patellofemoral compression and no crepitus noted. The knee is nontender to palpation. The right knee was also examined. The right knee is in neutral alignment. Right knee incision is clean dry and intact. 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 He is doing well status post reimplantation. He is on Keflex and we recommended he continue this. He is doing well. We will see him back in 3 weeks for wound check. (2) Status post total right knee replacement: Status: Acute Advanced Care Planning Discussion Advance care planning discussed with:: patient Office Procedures GNS Level of Care Nursing/Assessment Patient Status: Established Patient Nursing Assessment/Reassesment: Medication Reconciliation, Update PMH in EMR and Vital Signs Coordination of Care: Complex Care and Chronic Disease 1-5, Consent,records obtained, informed consent, Results/Orders obtained and Staff clarify orders Established Patient Charge Established Patient Point Assignment: 75 Established Patient Point Charge: EP Level 2 (40-75) UT Intake Visit Data Collection New Patient or Established: Established Patient (seen at [facility] within 3 years) Reason for Visit:: STAPLE REMOVAL/KNEE PCP or OBGYN visit in last 3 months: Yes Hx Now: No Do You Feel Safe at Home: Yes Authorities Contacted: N/A Questionairres Past Medical History Past Medical History Have you ever been diagnosed with any of the following: Neurological Problems Cerebrovascular Accident (CVA): Yes (no defficiencies) Seizures: No Cardiology Problems Hypercholesterolemia: Yes Congestive Heart Failure: No Hypertension: Yes Respiratory Problems Chronic Obstructive Pulmonary Disease (COPD): No Smoking: No Smoking Cessation Counseling: No Smoking Exposure: No Stomache/Intestinal Problems Obesity: Yes Genital/Urinary Problems Renal Disease: No Kidney Stones: Yes Musculoskeletal Problems Arthritis: Yes Fractures: Yes (left ankle) Head,Eye,Nose,Throat Problems Deafness: Yes (bilateral hearing aids) Endocrine Problems Diabetes Mellitus Type 1: No Diabetes Mellitus Type 2: No Other Problems Hospitalization: Yes (Back surgery) Shingles: No Blood Transfusions: No Blood Transfusion Reaction: No Anesthesia Reactions: No Chicken Pox: Yes Measles: Yes Mumps: Yes Cancer: Yes Subjective Visit Visit for: follow up visit and knee Immunization / Flu Flu Vaccine in the Last 12 Months: No Flu Vaccine Exclusion Criteria: No Exclusion Criteria and Already Received History of Present Illness Chief complaint: Right knee pain There is doing well status post right revision knee reimplantation. He is here for a wound check. We removed both his nicanor and his sutures today. He is doing well. He is moving around with a walker Pain Pain level (0-10): 4 Pain location: outside (lateral) Pain quality: aching Ambulatory data Ambulatory device: cane Treatments Improvement with previous injections: No Improvement with PT: No Improvement with NSAIDS: n/a Review of Systems Review of Systems: All systems negative unless otherwise noted in HPI.
[2024-09-13 10:33] VITALS: BP 129/82; PULSE 79; RESP 18; TEMP 35.5; O2SAT 90; BMI 41.0
== END 2024-09-13 10:54 | disposition home or self-care (01) ==
LOC: HODSRG 10:20
PROVIDERS: PCP Internal Medicine; Referring Provider Internal Medicine; Supervising Provider Orthopaedic Surgery Adult Reconstructive Orthopaedic Surgery; Visit Provider Orthopaedic Surgery Adult Reconstructive Orthopaedic Surgery
DX: T84.53XD Infection and inflammatory reaction due to internal right knee prosthesis, subsequent encounter (principal); Y84.9 Medical procedure, unspecified as the cause of abnormal reaction of the patient, or of later complication, without mention of misadventure at the time of the procedure
CPT/HCPCS: 99212; G0463

== ENCOUNTER 2024-09-23 10:17 | Outpatient (AMB) | payer OTHER, SELFPAY ==
[2024-09-23 10:49] VITALS: BP 144/81; PULSE 73; RESP 18; TEMP 36.7; O2SAT 95; BMI 38.2
--- NOTE | 2024-09-23 10:49 | PD.ORTHCLVIS ---
Vital signs 09/23/24 10:49 Height 1.87 m Height Method Stated Weight 133.526 kg Weight Measurement Method Standing Scale BMI 38.2 BP 144/81 H Blood Pressure Source Automatic Cuff Blood Pressure Location Right Upper Arm Position Sitting Respiration 18 Pulse 73 Pulse Source Monitor Temp 98.0 F Temp Source Temporal Artery Scan Pulse Oximetry (%) 95 Oxygen Delivery Method Room Air Med/Allergies Allergies & Medications Allergies bee venom protein (honey bee) Allergy (Unknown, Verified 09/23/24 10:50) Medication Reconciliation aspirin 81 mg tablet,delayed release 81 mg PO QDAY 07/18/24 [History Confirmed 09/23/24] atorvastatin 40 mg tablet 40 mg PO QDAY 07/18/24 [History Confirmed 09/23/24] cetirizine 10 mg capsule (Allergy Relief (cetirizine)) 10 mg PO QDAY PRN allergy symptoms 07/18/24 [History Confirmed 09/23/24] losartan 100 mg-hydrochlorothiazide 12.5 mg tablet 1 tab PO QDAY 07/18/24 [History Confirmed 09/23/24] metoprolol succinate 100 mg tablet,extended release 24 hr 100 mg PO QDAY 07/18/24 [History Confirmed 09/23/24] pantoprazole 40 mg tablet,delayed release 40 mg PO QDAY 07/18/24 [History Confirmed 09/23/24] potassium citrate 99 mg capsule 99 mg PO DAILY 07/18/24 [History Confirmed 09/23/24] cephalexin 500 mg capsule 500 mg PO Q6H 08/23/24 [History Confirmed 09/23/24] acetaminophen 500 mg tablet (Acetaminophen Extra Strength) 1,000 mg (2 x 500 mg) PO Q6H PRN pain #90 tabs 08/27/24 [Rx Confirmed 09/23/24] aspirin 81 mg tablet,delayed release 81 mg PO BID #60 tabs 08/27/24 [Rx Confirmed 09/23/24] cyclobenzaprine 5 mg tablet 5 mg PO TID PRN muscle spasm #60 tabs 08/27/24 [Rx Confirmed 09/23/24] gabapentin 300 mg capsule 300 mg PO .qhs #30 caps 08/27/24 [Rx Confirmed 09/23/24] oxycodone 5 mg tablet 5 mg PO Q6H PRN pain #28 tabs 08/27/24 [Rx Confirmed 09/23/24] sennosides 8.6 mg-docusate sodium 50 mg tablet (Senna-S) 1 tab-cap PO QDAY #30 tabs 08/27/24 [Rx Confirmed 09/23/24] Exam Exam Patient is in no acute distress and is cooperative with the examination today. Breathing is nonlabored. Patient has a normal mood and affect. The patient has a gait that is nonantalgic Bilateral extremities were evaluated and demonstrates sensation intact to light touch. Palpable pedal pulses are present. No significant edema is present. Bilateral hips were examined. The patient has no pain with log roll of the hips. Internal rotation to 30 degrees and external rotation to 30 degrees is painless. Negative FADIR. Left knee was examined today. The left knee is in reasonable alignment. Range of motion from 0-120 degrees. Knee is stable to varus and valgus as well as AP translation with <5mm. Patient has a negative McMurrays. There is no pain with patellofemoral compression and no crepitus noted. The knee is nontender to palpation. The right knee was also examined. The right knee is in neutral alignment. Right knee incision is clean dry and intact. 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 He is doing well status post reimplantation. His incision looks great and is very happy. Will see him in approximately 4 to 6 weeks for routine follow-up (2) Status post total right knee replacement: Status: Acute Advanced Care Planning Discussion Advance care planning discussed with:: patient Office Procedures GNS Level of Care Nursing/Assessment Patient Status: Established Patient Nursing Assessment/Reassesment: Medication Reconciliation, Update PMH in EMR and Vital Signs Coordination of Care: Complex Care and Chronic Disease 1-5, Education Complex Pt/Fam, Consent,records obtained, informed consent, Results/Orders obtained and Staff clarify orders Established Patient Charge Established Patient Point Assignment: 95 Established Patient Point Charge: EP Level 3 (80-115) MA Intake Visit Data Collection New Patient or Established: Established Patient (seen at [facility] within 3 years) Reason for Visit:: POST OP Seen by Clinical Staff ONLY (RN/MA): No Verbal consent obtained for Telemed visit?: No Guide Setter Required: No PCP or OBGYN visit in last 3 months: Yes Hx Now: No Do You Feel Safe at Home: Yes Authorities Contacted: N/A Questionairres Past Medical History Past Medical History Have you ever been diagnosed with any of the following: Neurological Problems Cerebrovascular Accident (CVA): Yes (no defficiencies) Seizures: No Cardiology Problems Hypercholesterolemia: Yes Congestive Heart Failure: No Hypertension: Yes Respiratory Problems Chronic Obstructive Pulmonary Disease (COPD): No Smoking: No Smoking Cessation Counseling: No Smoking Exposure: No Stomache/Intestinal Problems Obesity: Yes Genital/Urinary Problems Renal Disease: No Kidney Stones: Yes Musculoskeletal Problems Arthritis: Yes Fractures: Yes (left ankle) Head,Eye,Nose,Throat Problems Deafness: Yes (bilateral hearing aids) Endocrine Problems Diabetes Mellitus Type 1: No Diabetes Mellitus Type 2: No Other Problems Hospitalization: Yes (Back surgery) Shingles: No Blood Transfusions: No Blood Transfusion Reaction: No Anesthesia Reactions: No Chicken Pox: Yes Measles: Yes Mumps: Yes Cancer: Yes Subjective Visit Visit for: follow up visit, post op #1 and knee Immunization / Flu Flu Vaccine in the Last 12 Months: Yes Flu Vaccine Exclusion Criteria: Already Received History of Present Illness Chief complaint: POST OP There is doing well status post right revision knee reimplantation. He is moving well with his walker. The incision is healed up quite well. He is very happy Personal History Occupation: RETIRED Red flag PMH: BMI and none BMI Counceling provided: Yes Pain Pain level (0-10): 3 Pain duration: COMES AND GOES Pain location: outside (lateral) Pain quality: dull and aching Associated signs & symptoms: none Ambulatory data Ambulatory device: walker Treatments Improvement with previous injections: No Improvement with PT: No Improvement with NSAIDS: no Review of Systems Review of Systems: All systems negative unless otherwise noted in HPI.
== END 2024-09-23 11:13 | disposition home or self-care (01) ==
LOC: HODSRG 10:17
PROVIDERS: PCP Internal Medicine; Referring Provider Internal Medicine; Supervising Provider Orthopaedic Surgery Adult Reconstructive Orthopaedic Surgery; Visit Provider Orthopaedic Surgery Adult Reconstructive Orthopaedic Surgery
DX: T84.53XD Infection and inflammatory reaction due to internal right knee prosthesis, subsequent encounter (principal); Y84.9 Medical procedure, unspecified as the cause of abnormal reaction of the patient, or of later complication, without mention of misadventure at the time of the procedure; I10 Essential (primary) hypertension; E78.00 Pure hypercholesterolemia, unspecified; Z86.73 Personal history of transient ischemic attack (TIA), and cerebral infarction without residual deficits
CPT/HCPCS: 99213; G0463

== ENCOUNTER 2024-11-01 10:21 | Outpatient (AMB) | payer OTHER, SELFPAY ==
[2024-11-01 10:33] VITALS: BP 126/84; PULSE 76; RESP 18; TEMP 36.4; O2SAT 95; BMI 38.7
--- NOTE | 2024-11-01 10:33 | PD.ORTHCLVIS ---
Vital signs 11/01/24 10:33 Height 1.87 m Height Method Stated Weight 135.341 kg Weight Measurement Method Standing Scale BMI 38.7 BP 126/84 Blood Pressure Source Automatic Cuff Blood Pressure Location Left Upper Arm Position Sitting Respiration 18 Pulse 76 Pulse Source Monitor Temp 97.5 F Temp Source Temporal Artery Scan Pulse Oximetry (%) 95 Oxygen Delivery Method Room Air Med/Allergies Allergies & Medications Allergies bee venom protein (honey bee) Allergy (Unknown, Verified 11/01/24 10:34) Medication Reconciliation atorvastatin 40 mg tablet 40 mg PO QDAY 07/18/24 [History Confirmed 11/01/24] cetirizine 10 mg capsule (Allergy Relief (cetirizine)) 10 mg PO QDAY PRN allergy symptoms 07/18/24 [History Confirmed 11/01/24] losartan 100 mg-hydrochlorothiazide 12.5 mg tablet 1 tab PO QDAY 07/18/24 [History Confirmed 11/01/24] metoprolol succinate 100 mg tablet,extended release 24 hr 100 mg PO QDAY 07/18/24 [History Confirmed 11/01/24] pantoprazole 40 mg tablet,delayed release 40 mg PO QDAY 07/18/24 [History Confirmed 11/01/24] potassium citrate 99 mg capsule 99 mg PO DAILY 07/18/24 [History Confirmed 11/01/24] cephalexin 500 mg capsule 500 mg PO Q6H 08/23/24 [History Confirmed 11/01/24] aspirin 81 mg tablet,delayed release 81 mg PO BID #60 tabs 08/27/24 [Rx Confirmed 11/01/24] oxycodone 5 mg tablet 5 mg PO Q6H PRN pain #28 tabs 08/27/24 [Rx Confirmed 11/01/24] sennosides 8.6 mg-docusate sodium 50 mg tablet (Senna-S) 1 tab-cap PO QDAY #30 tabs 08/27/24 [Rx Confirmed 11/01/24] acetaminophen 500 mg tablet (Acetaminophen Extra Strength) 1,000 mg (2 x 500 mg) PO Q6H PRN pain #90 tabs 11/01/24 [Rx] cyclobenzaprine 5 mg tablet 5 mg PO TID PRN muscle spasm #60 tabs 11/01/24 [Rx] gabapentin 300 mg capsule 300 mg PO .qhs #30 caps 11/01/24 [Rx] Exam Exam Patient is in no acute distress and is cooperative with the examination today. Breathing is nonlabored. Patient has a normal mood and affect. The patient has a gait that is nonantalgic Bilateral extremities were evaluated and demonstrates sensation intact to light touch. Palpable pedal pulses are present. No significant edema is present. Bilateral hips were examined. The patient has no pain with log roll of the hips. Internal rotation to 30 degrees and external rotation to 30 degrees is painless. Negative FADIR. Left knee was examined today. The left knee is in reasonable alignment. Range of motion from 0-120 degrees. Knee is stable to varus and valgus as well as AP translation with <5mm. Patient has a negative McMurrays. There is no pain with patellofemoral compression and no crepitus noted. The knee is nontender to palpation. The right knee was also examined. The right knee is in neutral alignment. Right knee incision is clean dry and intact. 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 He is doing well status post reimplantation 7 weeks out from surgery. We will see him back in 2 months (2) Status post total right knee replacement: Status: Acute Advanced Care Planning Discussion Advance care planning discussed with:: patient Office Procedures GNS Level of Care Nursing/Assessment Patient Status: Established Patient Nursing Assessment/Reassesment: Medication Reconciliation, Update PMH in EMR and Vital Signs Coordination of Care: Complex Care and Chronic Disease 1-5, Education Complex Pt/Fam, Consent,records obtained, informed consent, Results/Orders obtained and Staff clarify orders Established Patient Charge Established Patient Point Assignment: 95 Established Patient Point Charge: EP Level 3 (80-115) MA Intake Visit Data Collection New Patient or Established: Established Patient (seen at [facility] within 3 years) Reason for Visit:: 6 WEEK POST OP F/U Seen by Clinical Staff ONLY (RN/MA): No Verbal consent obtained for Telemed visit?: No Sprinkling System Installer Required: No PCP or OBGYN visit in last 3 months: Yes Hx Now: No Do You Feel Safe at Home: Yes Authorities Contacted: N/A Questionairres Past Medical History Past Medical History Have you ever been diagnosed with any of the following: Neurological Problems Cerebrovascular Accident (CVA): Yes (no defficiencies) Seizures: No Cardiology Problems Hypercholesterolemia: Yes Congestive Heart Failure: No Hypertension: Yes Respiratory Problems Chronic Obstructive Pulmonary Disease (COPD): No Smoking: No Smoking Cessation Counseling: No Smoking Exposure: No Stomache/Intestinal Problems Obesity: Yes Genital/Urinary Problems Renal Disease: No Kidney Stones: Yes Musculoskeletal Problems Arthritis: Yes Fractures: Yes (left ankle) Head,Eye,Nose,Throat Problems Deafness: Yes (bilateral hearing aids) Endocrine Problems Diabetes Mellitus Type 1: No Diabetes Mellitus Type 2: No Other Problems Hospitalization: Yes (Back surgery) Shingles: No Blood Transfusions: No Blood Transfusion Reaction: No Anesthesia Reactions: No Chicken Pox: Yes Measles: Yes Mumps: Yes Cancer: Yes Subjective Visit Visit for: follow up visit Immunization / Flu Flu Vaccine in the Last 12 Months: No Flu Vaccine Exclusion Criteria: No Exclusion Criteria History of Present Illness Chief complaint: POST OP There is doing well status post right revision knee reimplantation. He is moving well with a cane. The incision is healed up quite well. He is very happy. He does not want to go to physical therapy. Personal History Occupation: RETIRED Red flag PMH: BMI and none BMI Counceling provided: Yes Pain Pain level (0-10): 4 Pain duration: COMES AND GOES Pain location: anterior Pain quality: dull and aching Pain timing: increases with activity Associated signs & symptoms: none Ambulatory data Ambulatory device: cane Treatments Improvement with previous injections: No Improvement with PT: No Improvement with NSAIDS: no Review of Systems Review of Systems: All systems negative unless otherwise noted in HPI.
--- NOTE | 2024-11-01 10:43 | XR_ITS ---
Examination: Right knee 4 views TECHNIQUE: AP oblique lateral axial right knee 4 views, standing Date and time: November 01, 2024 1110 hours INDICATIONS: Status post right knee replacement 2 months ago. FINDINGS: Total right knee arthroplasty. Satisfactory alignment No fracture No patellar dislocation IMPRESSION: Total right knee arthroplasty with satisfactory alignment
== END 2024-11-01 10:48 | disposition home or self-care (01) ==
LOC: HODSRG 10:21
PROVIDERS: PCP Internal Medicine; Referring Provider Internal Medicine; Supervising Provider Orthopaedic Surgery Adult Reconstructive Orthopaedic Surgery; Visit Provider Orthopaedic Surgery Adult Reconstructive Orthopaedic Surgery
DX: M00.9 Pyogenic arthritis, unspecified (principal); Z96.651 Presence of right artificial knee joint; Z86.73 Personal history of transient ischemic attack (TIA), and cerebral infarction without residual deficits; E78.00 Pure hypercholesterolemia, unspecified; I10 Essential (primary) hypertension
CPT/HCPCS: 73564; 99213; G0463

== ENCOUNTER → 2024-11-22 | Outpatient (CLI) | payer OTHER, SELFPAY ==
--- NOTE | 2024-11-22 | XR_ITS ---
Examination:Right hip AP, lateral, AP pelvis 3 views Technique: Hip AP lateral, AP pelvis, 3 views Exam date and time:November 22, 2024 1225 hours INDICATIONS: Right hip pain post knee surgery 2 months ago. FINDINGS: Moderate osteopenia Mild to moderate narrowing hip joints No right or left hip fracture or dislocation Bones of the pelvis intact IMPRESSION: Mild to moderate narrowing hip joints.
== END | disposition home or self-care (01) ==
LOC: CDIM 12:05
PROVIDERS: PCP Internal Medicine; Referring Provider Orthopaedic Surgery Adult Reconstructive Orthopaedic Surgery; Visit Provider Orthopaedic Surgery Adult Reconstructive Orthopaedic Surgery
DX: M25.851 Other specified joint disorders, right hip (principal)
CPT/HCPCS: 73502

== ENCOUNTER 2025-01-03 09:51 | Outpatient (AMB) | payer OTHER, SELFPAY ==
[2025-01-03 10:41] VITALS: BP 113/80; PULSE 67; RESP 19; TEMP 36.7; O2SAT 90; BMI 39.3
--- NOTE | 2025-01-03 10:41 | ORTHONT_ITS ---
Vital signs 01/03/25 10:41 Height 1.87 m Height Method Stated Weight 137.58 kg Weight Measurement Method Standing Scale BMI 39.3 BP 113/80 Blood Pressure Source Automatic Cuff Blood Pressure Location Right Upper Arm Position Sitting Respiration 19 Pulse 67 Pulse Source Monitor Temp 98.0 F Temp Source Temporal Artery Scan Pulse Oximetry (%) 90 L Oxygen Delivery Method Room Air Med/Allergies Allergies & Medications Allergies bee venom protein (honey bee) Allergy (Unknown, Verified 01/03/25 10:42) Medication Reconciliation atorvastatin 40 mg tablet 40 mg PO QDAY 07/18/24 [History Confirmed 01/03/25] cetirizine 10 mg capsule (Allergy Relief (cetirizine)) 10 mg PO QDAY PRN allergy symptoms 07/18/24 [History Confirmed 01/03/25] losartan 100 mg-hydrochlorothiazide 12.5 mg tablet 1 tab PO QDAY 07/18/24 [History Confirmed 01/03/25] metoprolol succinate 100 mg tablet,extended release 24 hr 100 mg PO QDAY 07/18/24 [History Confirmed 01/03/25] pantoprazole 40 mg tablet,delayed release 40 mg PO QDAY 07/18/24 [History Confirmed 01/03/25] potassium citrate 99 mg capsule 99 mg PO DAILY 07/18/24 [History Confirmed 01/03/25] cephalexin 500 mg capsule 500 mg PO Q6H 08/23/24 [History Confirmed 01/03/25] aspirin 81 mg tablet,delayed release 81 mg PO BID #60 tabs 08/27/24 [Rx Confirmed 01/03/25] oxycodone 5 mg tablet 5 mg PO Q6H PRN pain #28 tabs 08/27/24 [Rx Confirmed 01/03/25] sennosides 8.6 mg-docusate sodium 50 mg tablet (Senna-S) 1 tab-cap PO QDAY #30 tabs 08/27/24 [Rx Confirmed 01/03/25] acetaminophen 500 mg tablet (Acetaminophen Extra Strength) 1,000 mg (2 x 500 mg) PO Q6H PRN pain #90 tabs 11/01/24 [Rx Confirmed 01/03/25] cyclobenzaprine 5 mg tablet 5 mg PO TID PRN muscle spasm #60 tabs 11/01/24 [Rx Confirmed 07/15/25] gabapentin 300 mg capsule 300 mg PO .qhs #30 caps 11/01/24 [Rx Confirmed 01/03/25] Exam Exam Patient is in no acute distress and is cooperative with the examination today. Breathing is nonlabored. Patient has a normal mood and affect. The patient has a gait that is nonantalgic Bilateral extremities were evaluated and demonstrates sensation intact to light touch. Palpable pedal pulses are present. No significant edema is present. Bilateral hips were examined. The patient has no pain with log roll of the hips. Internal rotation to 30 degrees and external rotation to 30 degrees is painless. Negative FADIR. Left knee was examined today. The left knee is in reasonable alignment. Range of motion from 0-120 degrees. Knee is stable to varus and valgus as well as AP translation with <5mm. Patient has a negative McMurrays. There is no pain with patellofemoral compression and no crepitus noted. The knee is nontender to palpation. The right knee was also examined. The right knee is in neutral alignment. Right knee incision is clean dry and intact. Range of motion is 0 to 100 degrees. 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 He is doing well status post reimplantation and is 4 months out from surgery We will see him back in 4 months with new x-rays (2) Status post total right knee replacement: Status: Acute Advanced Care Planning Discussion Advance care planning discussed with:: patient Office Procedures GNS Level of Care Nursing/Assessment Patient Status: Established Patient Nursing Assessment/Reassesment: Medication Reconciliation, Update PMH in EMR and Vital Signs Coordination of Care: Complex Care and Chronic Disease 1-5, Education Complex Pt/Fam, Consent,records obtained, informed consent, Results/Orders obtained and Staff clarify orders Established Patient Charge Established Patient Point Assignment: 95 Established Patient Point Charge: EP Level 3 (80-115) MA Intake Visit Data Collection New Patient or Established: Established Patient (seen at [facility] within 3 years) Reason for Visit:: XRAY RESULTS Seen by Clinical Staff ONLY (RN/MA): No PCP or OBGYN visit in last 3 months: Yes Hx Now: No Do You Feel Safe at Home: Yes Authorities Contacted: N/A Questionairres Past Medical History Past Medical History Have you ever been diagnosed with any of the following: Neurological Problems Cerebrovascular Accident (CVA): Yes (no defficiencies) Seizures: No Cardiology Problems Hypercholesterolemia: Yes Congestive Heart Failure: No Hypertension: Yes Respiratory Problems Chronic Obstructive Pulmonary Disease (COPD): No Smoking: No Smoking Cessation Counseling: No Smoking Exposure: No Stomache/Intestinal Problems Obesity: Yes Genital/Urinary Problems Renal Disease: No Kidney Stones: Yes Musculoskeletal Problems Arthritis: Yes Fractures: Yes (left ankle) Head,Eye,Nose,Throat Problems Deafness: Yes (bilateral hearing aids) Endocrine Problems Diabetes Mellitus Type 1: No Diabetes Mellitus Type 2: No Other Problems Hospitalization: Yes (Back surgery) Shingles: No Blood Transfusions: No Blood Transfusion Reaction: No Anesthesia Reactions: No Chicken Pox: Yes Measles: Yes Mumps: Yes Cancer: Yes Subjective Visit Visit for: follow up visit, knee and x-rays Immunization / Flu Flu Vaccine in the Last 12 Months: No Flu Vaccine Exclusion Criteria: No Exclusion Criteria History of Present Illness Chief complaint: POST OP There is doing well status post right revision knee reimplantation. He is moving well with a cane. Uses it sometimes the incision is healed up quite well. He is very happy. Personal History Occupation: RETIRED Red flag PMH: BMI and none BMI Counceling provided: Yes Pain Pain level (0-10): 0 Pain duration: COMES AND GOES Pain location: anterior Pain quality: dull and aching Pain timing: increases with activity Associated signs & symptoms: none Ambulatory data Ambulatory device: none Treatments Improvement with previous injections: No Improvement with PT: No Improvement with NSAIDS: no Review of Systems Review of Systems: All systems negative unless otherwise noted in HPI.
== END 2025-01-03 10:49 | disposition home or self-care (01) ==
LOC: HODSRG 09:51
PROVIDERS: PCP Internal Medicine; Referring Provider Internal Medicine; Supervising Provider Orthopaedic Surgery Adult Reconstructive Orthopaedic Surgery; Visit Provider Orthopaedic Surgery Adult Reconstructive Orthopaedic Surgery
DX: M00.9 Pyogenic arthritis, unspecified (principal); Z96.651 Presence of right artificial knee joint; I10 Essential (primary) hypertension; E78.00 Pure hypercholesterolemia, unspecified
CPT/HCPCS: 99213; G0463

== ENCOUNTER 2025-03-22 13:19 | Outpatient (AMB) | payer OTHER, SELFPAY ==
[2025-03-22 13:30] VITALS: BP 143/75; PULSE 69; RESP 19; TEMP 36.2; O2SAT 94; BMI 39.4
--- NOTE | 2025-03-22 13:30 | PD.ORTHCLVIS ---
Vital signs 03/22/25 13:30 Height 1.87 m Height Method Stated Weight 137.92 kg Weight Measurement Method Standing Scale BMI 39.4 BP 143/75 H Blood Pressure Source Automatic Cuff Blood Pressure Location Right Upper Arm Position Sitting Respiration 19 Pulse 69 Pulse Source Monitor Temp 97.2 F Temp Source Temporal Artery Scan Pulse Oximetry (%) 94 L Oxygen Delivery Method Room Air Med/Allergies Allergies & Medications Allergies bee venom protein (honey bee) Allergy (Unknown, Verified 03/22/25 13:30) Medication Reconciliation atorvastatin 40 mg tablet 40 mg PO QDAY 07/18/24 [History Confirmed 03/22/25] cetirizine 10 mg capsule (Allergy Relief (cetirizine)) 10 mg PO QDAY PRN allergy symptoms 07/18/24 [History Confirmed 03/22/25] losartan 100 mg-hydrochlorothiazide 12.5 mg tablet 1 tab PO QDAY 07/18/24 [History Confirmed 03/22/25] metoprolol succinate 100 mg tablet,extended release 24 hr 100 mg PO QDAY 07/18/24 [History Confirmed 03/22/25] pantoprazole 40 mg tablet,delayed release 40 mg PO QDAY 07/18/24 [History Confirmed 03/22/25] potassium citrate 99 mg capsule 99 mg PO DAILY 07/18/24 [History Confirmed 03/22/25] cephalexin 500 mg capsule 500 mg PO Q6H 08/23/24 [History Confirmed 03/22/25] aspirin 81 mg tablet,delayed release 81 mg PO BID #60 tabs 08/27/24 [Rx Confirmed 03/22/25] oxycodone 5 mg tablet 5 mg PO Q6H PRN pain #28 tabs 08/27/24 [Rx Confirmed 03/22/25] sennosides 8.6 mg-docusate sodium 50 mg tablet (Senna-S) 1 tab-cap PO QDAY #30 tabs 08/27/24 [Rx Confirmed 03/22/25] acetaminophen 500 mg tablet (Acetaminophen Extra Strength) 1,000 mg (2 x 500 mg) PO Q6H PRN pain #90 tabs 11/01/24 [Rx Confirmed 03/22/25] cyclobenzaprine 5 mg tablet 5 mg PO TID PRN muscle spasm #60 tabs 11/01/24 [Rx Confirmed 03/22/25] gabapentin 300 mg capsule 300 mg PO .qhs #30 caps 11/01/24 [Rx Confirmed 03/22/25] Exam Exam Patient is in no acute distress and is cooperative with the examination today. Breathing is nonlabored. Patient has a normal mood and affect. The patient has a gait that is nonantalgic Bilateral extremities were evaluated and demonstrates sensation intact to light touch. Palpable pedal pulses are present. No significant edema is present. Bilateral hips were examined. The patient has no pain with log roll of the hips. Internal rotation to 30 degrees and external rotation to 30 degrees is painless. Negative FADIR. Left knee was examined today. The left knee is in reasonable alignment. Range of motion from 0-120 degrees. Knee is stable to varus and valgus as well as AP translation with <5mm. Patient has a negative [place]. There is no pain with patellofemoral compression and no crepitus noted. The knee is nontender to palpation. The right knee was also examined. The right knee is in neutral alignment. Right knee incision is clean dry and intact. Range of motion is 0 to 100 degrees. The knee feels stable to varus valgus stress as well as AP translation Assessment and Plan Problem List (1) Joint infection: Status: Acute Plan: ASSESSMENT AND PLAN 1. Postoperative status following right total knee replacement: The knee exhibits stability, and the hip condition is satisfactory. Gradual discontinuation of the cane is advised, starting within the home environment before resuming activities such as bowling. Using a chair for assistance in standing up is recommended. X-rays of the right knee will be obtained during the next visit. Follow-up: A follow-up appointment is scheduled for 3 months from now. (2) Status post total right knee replacement: Status: Acute Advanced Care Planning Discussion Advance care planning discussed with:: patient Office Procedures GNS Level of Care Nursing/Assessment Patient Status: Established Patient Nursing Assessment/Reassesment: Medication Reconciliation, Update PMH in EMR and Vital Signs Coordination of Care: Complex Care and Chronic Disease 1-5, Education Complex Pt/Fam, Consent,records obtained, informed consent, Results/Orders obtained and Staff clarify orders Established Patient Charge Established Patient Point Assignment: 95 Established Patient Point Charge: EP Level 3 (80-115) [place] Intake Visit Data Collection New Patient or Established: Established Patient (seen at [facility] within 3 years) Reason for Visit:: 3 MONTH FOLLOW UP Seen by Clinical Staff ONLY (RN/MA): No Verbal consent obtained for Telemed visit?: No Mathematical Sciences Professor Required: No PCP or OBGYN visit in last 3 months: Yes Hx Now: No Do You Feel Safe at Home: Yes Authorities Contacted: N/A Questionairres Past Medical History Past Medical History Have you ever been diagnosed with any of the following: Neurological Problems Cerebrovascular Accident (CVA): Yes (no defficiencies) Seizures: No Cardiology Problems Hypercholesterolemia: Yes Congestive Heart Failure: No Hypertension: Yes Respiratory Problems Chronic Obstructive Pulmonary Disease (COPD): No Smoking: No Smoking Cessation Counseling: No Smoking Exposure: No Stomache/Intestinal Problems Obesity: Yes Genital/Urinary Problems Renal Disease: No Kidney Stones: Yes Musculoskeletal Problems Arthritis: Yes Fractures: Yes (left ankle) Head,Eye,Nose,Throat Problems Deafness: Yes (bilateral hearing aids) Endocrine Problems Diabetes Mellitus Type 1: No Diabetes Mellitus Type 2: No Other Problems Hospitalization: Yes (Back surgery) Shingles: No Blood Transfusions: No Blood Transfusion Reaction: No Anesthesia Reactions: No Chicken Pox: Yes Measles: Yes Mumps: Yes Cancer: Yes Subjective Visit Visit for: follow up visit and knee Immunization / Flu Flu Vaccine in the Last 12 Months: No Flu Vaccine Exclusion Criteria: No Exclusion Criteria History of Present Illness Chief complaint: 3 MONTH FOLLOW UP HISTORY OF PRESENT ILLNESS I, Jose Varner, have obtained verbal consent from the patient, to be recorded during this encounter which may include, but not limited to, medical history, examination, treatment plans, and relevant health information.? Patient was informed that recording will be read and reviewed by myself before inclusion in the medical chart. 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 He was reimplanted on 08/24/2024. He reports that his knee is in good condition and expresses a desire to resume bowling. He has been using a cane for support and has a brace, but the brace tends to slip down. He uses the cane for stability during long walks and after prolonged periods of sitting. He also mentions that he has undergone physical therapy for his knee. Personal History Occupation: RETIRED Red flag PMH: BMI BMI Counceling provided: Yes Pain Pain level (0-10): 0 Associated signs & symptoms: none Review of Systems Review of Systems: All systems negative unless otherwise noted in HPI.
== END 2025-03-22 13:39 | disposition home or self-care (01) ==
LOC: HODSRG 13:19
PROVIDERS: PCP Internal Medicine; Referring Provider Internal Medicine; Supervising Provider Orthopaedic Surgery Adult Reconstructive Orthopaedic Surgery; Visit Provider Orthopaedic Surgery Adult Reconstructive Orthopaedic Surgery
DX: Z47.1 Aftercare following joint replacement surgery (principal); Z96.651 Presence of right artificial knee joint; I10 Essential (primary) hypertension; E66.9 Obesity, unspecified; Z68.39 Body mass index [BMI] 39.0-39.9, adult
CPT/HCPCS: 99213; G0463